=== PATIENT | male | born 1965 | race Hispanic/Latino ===

== ENCOUNTER 2017-06-03 12:52 | Inpatient (IN) | payer MEDICAID, OTHER ==
[2017-06-03 14:02] LABS: HEMOGLOBIN 14.8 g/dL (12.0-18.0); MEAN CELL VOLUME 88.6 fl (80.0-94.0); MEAN CORPUSCULAR HEMOGLOBIN 30.8 pg (27.0-31.0); MEAN CORPUSCULAR HGB CONC 34.8 g/dL (33.0-37.0); RBC 4.81 Mil/uL (4.40-5.90); RED CELL DISTRIBUTION WIDTH 12.8 % (11.5-14.5); WHITE BLOOD COUNT 14.2 K/uL (4.8-10.8)
--- NOTE | 2017-06-03 14:11 | RAD ---
HISTORY: SI COMPARISON: No prior. FINDINGS: LUNGS: No active pulmonary disease. PLEURA: No significant pleural effusion identified, no pneumothorax apparent. CARDIOVASCULAR: Normal. OSSEOUS STRUCTURES: No significant abnormalities. VISUALIZED UPPER ABDOMEN: Normal. OTHER FINDINGS: None. IMPRESSION: No active disease.
[2017-06-03 14:20] LABS: ACETAMINOPHEN < 10.0 ug/ml (10.0-30.0); ALB/GLOB RATIO 1.5 (1.0-2.1); ALBUMIN 4.3 g/dL (3.5-5.0); ALT/SGPT 25 U/L (21-72); AST/SGOT 21 U/L (17-59); BLOOD UREA NITROGEN 10 mg/dl (9-20); CALCIUM 9.9 mg/dL (8.4-10.2); GFR AFRICAN-AMERICAN > 60; GFR NON-AFRICAN AMERICAN > 60; SALICYLATE < 1.0 mg/dl
[2017-06-03 14:30] LABS: URINE BACTERIA RARE (<OCC); URINE BILIRUBIN NEGATIVE (NEGATIVE); URINE BLOOD NEGATIVE (NEGATIVE); URINE CLARITY CLEAR (Clear); URINE COLOR STRAW (YELLOW); URINE GLUCOSE (UA) NEG (Normal); URINE LEUKOCYTE ESTERASE NEG Leu/uL (Negative); URINE NITRATE NEGATIVE (NEGATIVE); URINE PROTEIN NEGATIVE (NEGATIVE); URINE UROBILINOGEN 0.2-1.0 mg/dL (0.2-1.0)
[2017-06-03 14:34] LABS: BARBITURATES, UR NEGATIVE (NEGATIVE); BENZODIAZEPINES, UR NEGATIVE (NEGATIVE); OPIATES, UR NEGATIVE (NEGATIVE); PHENCYCLIDINE, UR NEGATIVE (NEGATIVE)
[2017-06-03 15:01] VITALS: O2SAT 95
--- NOTE | 2017-06-03 16:54 | ED PDOC ---
HPI: Psych/Substance Abuse Time Seen by Provider: 06/03/17 13:04 Chief Complaint (Nursing): Psychiatric Evaluation Chief Complaint (Provider): SI History Per: Patient History/Exam Limitations: no limitations Onset/Duration Of Symptoms: Days Current Symptoms Are (Timing): Still Present Additional Complaint(s): 51 yo male with history of depression presents with SI. Pt states he has been shaking for a few months. Pt states that he was sent to neurologist for possible parkinsons but that he was unable to get to the appointment. Pt states due to the shaking he was unable to get tot he appointment. PT states that he wants to kill himself becuase he is losing the ability to take care of himself due to the shaking Past Medical History Reviewed: Historical Data, Nursing Documentation, Vital Signs Vital Signs: Last Vital Signs Temp 98 F 06/03/17 16:42 Pulse 104 H 06/03/17 16:42 Resp 19 06/03/17 16:42 BP 130/69 06/03/17 16:42 Pulse Ox 95 06/03/17 15:01 - Medical History PMH: Anxiety, Bipolar Disorder, Depression, HTN, Schizophrenia Denies: Diabetes, Hepatitis, HIV, Chronic Kidney Disease, Seizures, Sexually Transmitted Disease - Family History Family History: States: Unknown Family Hx - Immunization History Hx Tetanus Toxoid Vaccination: No Hx Influenza Vaccination: No Hx Pneumococcal Vaccination: No - Home Medications Home Medications: Ambulatory Orders Medication Instructions Recorded LORazepam [Ativan] 1 mg PO HS 10/26/15 Divalproex [Depakote DR] 500 mg PO Q12H 06/03/17 Mirtazapine [Remeron] 30 mg PO HS 06/03/17 QUEtiapine [Seroquel] 100 mg PO DAILY 06/03/17 Valbenazine Tosylate [Ingrezza] 06/03/17 - Allergies Allergies/Adverse Reactions: Allergies Allergy/AdvReac Type Severity Reaction Status Date / Time haloperidol [From Haldol] Allergy SWELLING Verified 06/03/17 12:55 haloperidol lactate Allergy SWELLING Verified 06/03/17 12:55 [From Haldol] Tetanus Vaccines and Toxoid Allergy SHORTNESS Verified 06/03/17 12:55 [Tetanus Vaccines & Toxoid] OF BREATH Review of Systems ROS Statement: Except As Marked, All Systems Reviewed And Found Negative Constitutional: Negative for: Fever, Chills Cardiovascular: Negative for: Chest Pain, Palpitations Respiratory: Negative for: Cough Gastrointestinal: Negative for: Nausea, Vomiting, Abdominal Pain Psych: Positive for: Suicidal ideation. Negative for: Depression Physical Exam - Reviewed Nursing Documentation Reviewed: Yes Vital Signs Reviewed: Yes - Physical Exam Appears: Positive for: Well, Non-toxic, No Acute Distress Head Exam: Positive for: ATRAUMATIC, NORMAL INSPECTION, NORMOCEPHALIC Skin: Positive for: Normal Color, Warm, DRY Eye Exam: Positive for: Normal appearance, EOMI, PERRL ENT: Positive for: Normal ENT Inspection Neck: Positive for: Normal, Painless ROM Cardiovascular/Chest: Positive for: Regular Rate, Rhythm Respiratory: Positive for: Normal Breath Sounds. Negative for: Accessory Muscle Use Gastrointestinal/Abdominal: Positive for: Normal Exam, Bowel Sounds, Soft Back: Positive for: Normal Inspection Extremity: Positive for: Normal ROM Neurologic/Psych: Positive for: Alert, Oriented, Other (tremor) - Laboratory Results Result Diagrams: 06/03/17 13:45 06/03/17 13:45 - ECG O2 Sat by Pulse Oximetry: 95 Pulse Ox Interpretation: Normal Medical Decision Making Medical Decision Making: Elevated wbc - Afebrile, normal CXR, normal urine. Head CT ordered. Disposition - Clinical Impression Clinical Impression: Depression - Patient ED Disposition Is Patient to be Admitted: Yes Counseled Patient/Family Regarding: Diagnosis, Need For Followup - Disposition Disposition: Routine/Home Disposition Time: 16:56 Condition: GOOD - Pt Status Changed To: Hospital Disposition Of: Inpatient - Admit Certification Admit to Inpatient:: After my assessment, the patient will require hospitalization for at least two midnights. This is because of the severity of symptoms shown, intensity of services needed, and/or the medical risk in this patient being treated as an outpatient. - POA Present On Arrival: None
--- NOTE | 2017-06-03 17:28 | CT ---
PROCEDURE: CT scan brain dated 06/03/2017. HISTORY: r/o bleed COMPARISON: No prior study available for comparison TECHNIQUE: Axial computed tomography images were obtained through the head/brain without intravenous contrast. Radiation dose: Total exam DLP = 870.72 mGy-cm. This CT exam was performed using one or more of the following dose reduction techniques: Automated exposure control, adjustment of the mA and/or kV according to patient size, and/or use of iterative reconstruction technique. FINDINGS: HEMORRHAGE: No acute parenchymal, subarachnoid or extra-axial hemorrhage. BRAIN: No evidence of large acute infarct. No obvious parenchymal nor extra-axial mass or collection seen on this noncontrast study. VENTRICLES: Unremarkable. No hydrocephalus. CALVARIUM: Unremarkable. PARANASAL SINUSES: Unremarkable as visualized. No significant inflammatory changes. MASTOID AIR CELLS: Unremarkable as visualized. No inflammatory changes. OTHER FINDINGS: None. IMPRESSION: No acute intracranial hemorrhage.
[2017-06-03 17:43] VITALS: BMI 26.1
[2017-06-03] MEDS ORDERED: Bismuth Subsalicylate 262 mg/15 ml Sus (240 ml) PO PRN (17:48)
[2017-06-03] MEDS ORDERED: Magnesium Hydroxide Susp 30 ml UD PO PRN (17:48)
[2017-06-03] MEDS ORDERED: Alum-Mag Hydrox-Simethicone Susp (30 mL) PO PRN (17:48)
[2017-06-03] MEDS ORDERED: Divalproex 500 mg DR(BID formulation) PO SCH (18:00)
--- NOTE | 2017-06-03 18:20 | PCM.BM ---
<Vika Garcia - Last Filed: 06/03/17 18:17> Treatment Plan Problems - Problems identified on initial assessmt Hopelessness/Helplessness Date Initiated: 06/03/17 Time Initiated: 18:18 Assessment reference: HP, NA Status: Active Treatment assets and liabiliti Patient Assests: adapts well, cooperative Patient Liabilities: live alone, medical problems - Milieu Protocol Maintain good personal hygiene: daily Encourage regular showers, daily Remind patient to perform daily oral care, daily Assist patient to perform ADL's Conduct patient checks and document Observation sheet: Q15 minutes Maintain personal safety: every shift Educate patient to report safety concerns to staff, every shift Monitor environment for contraband/sharps Medication safety: Monitor for expected outcome, potential side effects: every shift, Assess barriers to learning: every shift, Assess readiness for medication education: every shift <Ashlyn Bui - Last Filed: 06/04/17 09:20> - Diagnosis (1) Schizoaffective disorder Status: Acute Interventions: Medication management, Individual and group therapy, Psychoeducation 06/04/17 09:20 <Cindi Arboleda - Last Filed: 06/04/17 13:29> Family Contact Family contact: Patient agrees to contact, Telephone contact initiated by staff Family contact name: Jhonatan - significant other Family contacted how many times per week?: 2 Family contact comment: [phone] - Outside Agency [facility] Care involvment: Information-sharing Agency contact name: Dr. Salvatore MD Agency contact number: [phone] - Goals for Treatment Patient goals for treatment: Pt to be encouraged to attend activity and clinical groups 3-5x per week to identify at least 2 contributing factors to depression and suicide attempt. Psycho-education to be provided to patient/ family regarding benefits of medications and treatment adherence. Pt to be encouraged to participate in group milieu to develop effective coping skills to reduce depression and free of suicide ideation. Coordinate discharge resource needs by providing referral for psychiatric treatment follow up in the community. Discharge/Continuing Care - Education Needs Education Needs: Family Medication, Family Diagnosis/Disease Process, Family Coping Skills, Family Placement options, Family Community resources, Family Activities of Daily Living, Family Nutrition, Family Health Practices/Safety, Family Personal Hygiene/Grooming, Family Aftercare Safety Plan, Patient Medication, Patient Diagnosis/Disease Process, Patient Coping Skills, Patient Placement options, Patient Community resources, Patient Activities of Daily Living, Patient Nutrition, Patient Health Practices/Safety, Patient Personal Hygiene/Grooming, Patient Aftercare Safety Plan - Discharge Discharge Criteria: Tolerates medication w/o severe side effects, Free of Suicidal thoughts, Normal sleep pattern, Ability to care for self, Reduction of target symptoms Discharge to:: Home, With Family - Additional Comments 06/04/17 13:26 Pt seen and discussed in team meeting. Reason for hospitalization reviewed and discussed. Pt reported being referred tot he ED by Dr. Salvatore MD from [facility] due to suicide ideation. Pt reported having a plan to hang himself. Pt reported lately Dr. Salvatore MD has been changing his medications and he feels as if he is overmedicated. Pt presently denied SI and HI. Pt is agreeable to contract for safety on the unit. Pt's social and medical issues reviewed and discussed. Pt's medications reviewed with attending psychiatrist at length. Tx plan reviewed and pt is agreeable. Pt signed consent form for partner, Jhonatan for additional information ([phone]). Sw to continue to follow case. - Treatment Team Participation Discussed with Family/SO: No Was Patient/Family/SO present at Treatment Team Meeting: Yes
[2017-06-03] MEDS: Divalproex 500 mg DR(BID formulation) PO SCH (21:14)
[2017-06-04] MEDS ORDERED: Potassium Chloride 20 mEq ER Tab PO ONE (06:48)
[2017-06-04 07:17] LABS: HEMOGLOBIN 14.5 g/dL (12.0-18.0); MEAN CELL VOLUME 89.9 fl (80.0-94.0); MEAN CORPUSCULAR HEMOGLOBIN 30.9 pg (27.0-31.0); MEAN CORPUSCULAR HGB CONC 34.4 g/dL (33.0-37.0); RBC 4.7 Mil/uL (4.40-5.90); RED CELL DISTRIBUTION WIDTH 12.9 % (11.5-14.5); WHITE BLOOD COUNT 9.8 K/uL (4.8-10.8)
[2017-06-04 07:21] LABS: ALB/GLOB RATIO 1.4 (1.0-2.1); ALBUMIN 4.2 g/dL (3.5-5.0); ALT/SGPT 25 U/L (21-72); AST/SGOT 19 U/L (17-59); BLOOD UREA NITROGEN 8 mg/dl (9-20); CALCIUM 9.8 mg/dL (8.4-10.2); GFR AFRICAN-AMERICAN > 60; GFR NON-AFRICAN AMERICAN > 60; HDL CHOLESTEROL 52 MG/DL (30-70)
--- NOTE | 2017-06-04 07:37 | CP.PCM.CON ---
History of Present Illness - History of Present Illness History of Present Illness: Family Medicine 51 year old male PMHx bipolar disorder, depression, anxiety, hypertriglyceridemia seen and evaluated for worsening depression and suicidal ideation. Denies homicidal ideations. Patient states his depression worsened due to uncontrollable shaking of his hands with movement; states this began approximately 2 months ago and has worsened over time. Admits to compliance with psych medications. Complaining of insomnia currently. No other complaints. Denies nausea, vomiting, fever, chills, chest pain, palpitations, abd pain, diarrhea, constipation, dysuria. PMD: [facility] PMHx: bipolar disorder, depression, anxiety, hypertriglyceridemia PSH: none FH: none SH: 1PPD x40 years, denies ETOH/illicit drug use All: haldol (tongue swells), tetanus (arm smells) Review of Systems - Review of Systems All systems: reviewed and no additional remarkable complaints except (as per HPI ) Past Patient History - Infectious Disease Hx of Infectious Diseases: None - Past Social History Smoking Status: Current Some Days Smoker - CARDIAC Hx Cardiac Disorders: Yes Hx Hypertension: Yes - PULMONARY Hx Respiratory Disorders: No Hx Tuberculosis: No - NEUROLOGICAL Hx Neurological Disorder: No Hx Seizures: No - HEENT Hx HEENT Problems: No Other/Comment: uses reading glasses - RENAL Hx Chronic Kidney Disease: No - ENDOCRINE/METABOLIC Hx Endocrine Disorders: No - HEMATOLOGICAL/ONCOLOGICAL Hx Blood Disorders: No Hx Human Immunodeficiency Virus (HIV): No - INTEGUMENTARY Hx Dermatological Problems: No - MUSCULOSKELETAL/RHEUMATOLOGICAL Hx Musculoskeletal Disorders: No Hx Unsteady Gait: No - GASTROINTESTINAL Hx Gastrointestinal Disorders: No - GENITOURINARY/GYNECOLOGICAL Hx Genitourinary Disorders: No Hx Sexually Transmitted Disorders: No - PSYCHIATRIC Hx Emotional Abuse: No Hx Sexual Abuse: No Hx Substance Use: No - SURGICAL HISTORY Hx Surgeries: Yes Other/Comment: Face and lip surgery - ANESTHESIA Hx Anesthesia: Yes Hx Anesthesia Reactions: No Meds Allergies/Adverse Reactions: Allergies Allergy/AdvReac Type Severity Reaction Status Date / Time haloperidol [From Haldol] Allergy SWELLING Verified 06/03/17 12:55 haloperidol lactate Allergy SWELLING Verified 06/03/17 12:55 [From Haldol] Tetanus Vaccines and Toxoid Allergy SHORTNESS Verified 06/03/17 12:55 [Tetanus Vaccines & Toxoid] OF BREATH - Medications Medications: Current Medications Acetaminophen (Tylenol 325mg Tab) 650 mg PO Q4 PRN PRN Reason: Pain, moderate (4-7) Al Hydrox/Mg Hydrox/Simethicone (Maalox Plus 30 Ml) 30 ml PO Q4 PRN PRN Reason: Dyspepsia Bismuth Subsalicylate (Pepto-Bismol) 524 mg PO Q4 PRN PRN Reason: Diarrhea Divalproex Sodium (Depakote Dr(*Bid*)) 500 mg PO Q12 [facility] Last Admin: 06/03/17 21:14 Dose: 500 mg Lorazepam (Ativan) 0.5 mg PO HS PRN PRN Reason: Insomnia Stop: 06/17/17 17:49 Lorazepam (Ativan) 0.5 mg PO Q6 PRN PRN Reason: Anixety/Agitation Stop: 06/17/17 17:49 Lorazepam (Ativan) 1 mg PO HS [facility] Last Admin: 06/03/17 21:14 Dose: 1 mg Magnesium Hydroxide (Milk Of Magnesia) 30 ml PO HS PRN PRN Reason: Constipation Mirtazapine (Remeron) 30 mg PO HS [facility] Last Admin: 06/03/17 21:14 Dose: 30 mg Nicotine (Nicoderm Cq) 1 patch TD DAILY [facility] Quetiapine Fumarate (Seroquel) 100 mg PO DAILY [facility] Physical Exam - Constitutional Appears: Well, Non-toxic, No Acute Distress - Head Exam Head Exam: ATRAUMATIC, NORMAL INSPECTION, NORMOCEPHALIC - Eye Exam Eye Exam: EOMI, Normal appearance Pupil Exam: NORMAL ACCOMODATION, PERRL - ENT Exam ENT Exam: Mucous Membranes Moist, Normal Exam - Neck Exam Neck exam: Positive for: Full Rom, Normal Inspection. Negative for: Tenderness - Respiratory Exam Respiratory Exam: Clear to Auscultation Bilateral, NORMAL BREATHING PATTERN. absent: Rales, Rhonchi, Wheezes - Cardiovascular Exam Cardiovascular Exam: REGULAR RHYTHM, +S1, +S2 - GI/Abdominal Exam GI & Abdominal Exam: Normal Bowel Sounds, Soft. absent: Tenderness - Extremities Exam Extremities exam: Positive for: full ROM. Negative for: pedal edema - Neurological Exam Additional comments: Intention tremor bilateral UE - Psychiatric Exam Psychiatric exam: Anxious, Depressed - Skin Skin Exam: Dry, Intact, Normal Color, Warm Results - Vital Signs Recent Vital Signs: Last Vital Signs Temp 98.1 F 06/04/17 05:56 Pulse 92 H 06/04/17 05:56 Resp 19 06/04/17 05:56 BP 136/74 06/04/17 05:56 Pulse Ox 95 06/03/17 16:57 - Labs Result Diagrams: 06/04/17 06:34 06/04/17 06:34 Labs: Laboratory Results - last 24 hr 06/03/17 06/03/17 06/03/17 13:45 13:45 13:45 WBC 14.2 H D RBC 4.81 Hgb 14.8 Hct 42.6 MCV 88.6 D MCH 30.8 MCHC 34.8 RDW 12.8 Plt Count 478 H D Sodium 140 Potassium 3.5 L Chloride 101 Carbon Dioxide 26 Anion Gap 17 BUN 10 Creatinine 0.9 Est GFR ( Amer) > 60 Est GFR (Non-Af Amer) > 60 Random Glucose 103 Calcium 9.9 Total Bilirubin 0.3 AST 21 ALT 25 Alkaline Phosphatase 65 Total Protein 7.2 Albumin 4.3 Globulin 2.9 Albumin/Globulin Ratio 1.5 Triglycerides Cholesterol HDL Cholesterol Free T4 Urine Color Urine Clarity Urine pH Ur Specific [place] Urine Protein Urine Glucose (UA) Urine Ketones Urine Blood Urine Nitrate Urine Bilirubin Urine Urobilinogen Ur Leukocyte Esterase Urine RBC (Auto) Urine Microscopic WBC Urine Bacteria Salicylates < 1.0 Urine Opiates Screen Urine Methadone Screen Acetaminophen < 10.0 L Ur Barbiturates Screen Valproic Acid Ur Phencyclidine Scrn Ur Amphetamines Screen U Benzodiazepines Scrn U Oth Cocaine Metabols U Cannabinoids Screen Alcohol, Quantitative < 10 06/03/17 06/03/17 06/04/17 13:55 13:55 06:34 WBC 9.8 RBC 4.70 Hgb 14.5 Hct 42.2 MCV 89.9 MCH 30.9 MCHC 34.4 RDW 12.9 Plt Count 467 H Sodium Potassium Chloride Carbon Dioxide Anion Gap BUN Creatinine Est GFR ( Amer) Est GFR (Non-Af Amer) Random Glucose Calcium Total Bilirubin AST ALT Alkaline Phosphatase Total Protein Albumin Globulin Albumin/Globulin Ratio Triglycerides Cholesterol HDL Cholesterol Free T4 Urine Color Straw Urine Clarity Clear Urine pH 7.0 Ur Specific [place] < 1.005 Urine Protein Negative Urine Glucose (UA) Neg Urine Ketones Negative Urine Blood Negative Urine Nitrate Negative Urine Bilirubin Negative Urine Urobilinogen 0.2-1.0 Ur Leukocyte Esterase Neg Urine RBC (Auto) < 1 Urine Microscopic WBC < 1 Urine Bacteria Rare Salicylates Urine Opiates Screen Negative Urine Methadone Screen Negative Acetaminophen Ur Barbiturates Screen Negative Valproic Acid Ur Phencyclidine Scrn Negative Ur Amphetamines Screen Negative U Benzodiazepines Scrn Negative U Oth Cocaine Metabols Negative U Cannabinoids Screen Negative Alcohol, Quantitative 06/04/17 06/04/17 06/04/17 06:34 06:34 06:34 WBC RBC Hgb Hct MCV MCH MCHC RDW Plt Count Sodium 137 Potassium 4.0 Chloride 99 Carbon Dioxide 28 Anion Gap 14 BUN 8 L Creatinine 0.8 Est GFR ( Amer) > 60 Est GFR (Non-Af Amer) > 60 Random Glucose 105 Calcium 9.8 Total Bilirubin 0.4 AST 19 ALT 25 Alkaline Phosphatase 68 Total Protein 7.1 Albumin 4.2 Globulin 2.9 Albumin/Globulin Ratio 1.4 Triglycerides 176 H D Cholesterol 189 HDL Cholesterol 52 Free T4 1.66 Urine Color Urine Clarity Urine pH Ur Specific [place] Urine Protein Urine Glucose (UA) Urine Ketones Urine Blood Urine Nitrate Urine Bilirubin Urine Urobilinogen Ur Leukocyte Esterase Urine RBC (Auto) Urine Microscopic WBC Urine Bacteria Salicylates Urine Opiates Screen Urine Methadone Screen Acetaminophen Ur Barbiturates Screen Valproic Acid 28.6 L Ur Phencyclidine Scrn Ur Amphetamines Screen U Benzodiazepines Scrn U Oth Cocaine Metabols U Cannabinoids Screen Alcohol, Quantitative Assessment & Plan (1) Tremor of both hands Status: Acute (2) Bipolar disorder Status: Acute (3) Anxiety Status: Acute (4) Depression Status: Acute (5) Insomnia Status: Acute (6) Hypertriglyceridemia Status: Acute (7) Hypokalemia Status: Acute - Assessment and Plan (Free Text) Assessment: 51 year old male PMHx bipolar disorder, depression, anxiety, hx of tuberculosis , hypertriglyceridemia admitted for worsening depression and suicidal ideation. (1) Tremor of both hands -2/2 medication vs. benign etiology; no metabolic derangement or PMHx -Will continue to monitor (2) Bipolar disorder -Management per psychiatry (3) Anxiety -Management per psychiatry (4) Depression -Management per psychiatry (5) Insomnia -Management per psychiatry (6) Hypertriglyceridemia -Stable -Mildly elevated @ 176 -Total cholesterol, HDL, LDL all WNL -Will monitor (7) Hypokalemia -K 3.5 yesterday -KCl 40meq PO -Replete with KCl prn
[2017-06-04 07:41] LABS: T4 13.7 ug/dl (5.5-11.0)
[2017-06-04] MEDS: Divalproex 500 mg DR(BID formulation) PO SCH (09:00)
[2017-06-04 09:14] LABS: LDL CHOLESTEROL 91 mg/dL (0-129)
--- NOTE | 2017-06-04 09:20 | PCM.PSYCH ---
Initial Psychiatric Evaluation - Initial Psychiatric Evaluation Type of Admission: Voluntary Legal Status: Capacity Chief Complaint (in patient's own words): "I was having suicidal thoughts." Patient's Reaction to Hospitalization: HPI: 51 yo male w/ h/o schizoaffective disorder, HLD, presents with worsening depression and suicidal ideation to hang himself. Patient reports that he feels upset because he feels like his hands shake uncontrollable and they have limited his ability to do things, such as care for himself and shave. Patient reports that he has been compliant with medications and that his primary psychiatrist has been modifying them because he feels "over medicated." He reports intermittent feels of depression. +Sleep/appetite disturbances. + Constricted affect. +Anhedonia. He denies current active suicidal ideation or intent and was able to contract for safety on the unit. Denies AH/VH/paranoia/ delusions. PPHx: History of psychiatric admission at [facility]. Current treatment w / Dr. Chase. Patient is currently being tapered off of Invega and increased on Seroquel (now at 200 mg PO HS). He was also prescribed Depakote 500 mg PO PO BID, Ativan 1 mg PO HS and Remeron 30 mg PO HS. PMHx: HLD SHx: Smokes 1ppd, denies drugs/etoh use. Lives w/ romantic partner. Unemployed. h/o Alcohol Use Disorder in remission. Current Medications: Active Medications Generic Name Dose Route Start Last Admin Trade Name Freq PRN Reason Stop Dose Admin Acetaminophen 650 mg 06/03/17 17:48 Tylenol 325mg Tab PO Q4 PRN Pain, moderate (4-7) Al Hydrox/Mg Hydrox/Simethicone 30 ml 06/03/17 17:48 Maalox Plus 30 Ml PO Q4 PRN Dyspepsia Bismuth Subsalicylate 524 mg 06/03/17 17:48 Pepto-Bismol PO Q4 PRN Diarrhea Divalproex Sodium 500 mg 06/03/17 21:00 06/04/17 09:00 Conchita Rollins(*Bid*) PO 500 mg Q12 TOY Administration Lorazepam 0.5 mg 06/03/17 17:48 Ativan PO 06/17/17 17:49 HS PRN Insomnia Lorazepam 0.5 mg 06/03/17 17:48 Ativan PO 06/17/17 17:49 Q6 PRN Anixety/Agitation Lorazepam 1 mg 06/03/17 22:00 06/03/17 21:14 Ativan PO 1 mg HS TOY Administration Magnesium Hydroxide 30 ml 06/03/17 17:48 Milk Of Magnesia PO HS PRN Constipation Mirtazapine 30 mg 06/03/17 22:00 06/03/17 21:14 Remeron PO 30 mg HS TOY Administration Nicotine 1 patch 06/04/17 09:00 06/04/17 08:59 Nicoderm Cq TD 1 patch DAILY TOY Administration Quetiapine Fumarate 100 mg 06/04/17 22:00 Seroquel PO HS TOY Past Psychiatric History - Past Psychiatric History Previous Treatment History: Inpatient Pertinent Medical Hx (Current Medical&Sleep Prob, Allergies): Allergies Allergy/AdvReac Type Severity Reaction Status Date / Time haloperidol [From Haldol] Allergy SWELLING Verified 06/03/17 12:55 haloperidol lactate Allergy SWELLING Verified 06/03/17 12:55 [From Haldol] Tetanus Vaccines and Toxoid Allergy SHORTNESS Verified 06/03/17 12:55 [Tetanus Vaccines & Toxoid] OF BREATH LORazepam [Ativan] 1 mg PO HS 10/26/15 Divalproex [Depakote DR] 500 mg PO Q12H 06/03/17 Mirtazapine [Remeron] 30 mg PO HS 06/03/17 QUEtiapine [Seroquel] 100 mg PO DAILY 06/03/17 Valbenazine Tosylate [Ingrezza] 06/03/17 Review of Systems - Psychiatric Psychiatric: As Per HPI, Abnormal Sleep Pattern, Anhedonia, Anxiety, Behavioral Changes, Change in Appetite, Difficulty Concentrating, Hopelessness, Irritability, Mood Swings, Suicidal Ideation Mental Status Examination - Personal Presentation Personal Presentation: Looks stated age - Affect Affect: Constricted, Depressed - Motor Activity Motor Activity: Calm - Reliability in Providing Information Reliability in Providing Information: Fair - Speech Speech: Coherent - Mood Mood: Depressed - Formal Thought Process Formal Thought Process: No Impairment - Hallucinations/Delusions Additional comments: No AH/VH/paranoia/delusions - Obsessions/Compulsions Obsessions: No Compulsions: No - Cognitive Functions Orientation: Person, Place, Situation, Time Sensorium: Alert Attention/Concentration: Attentive Judgement: Intact, as evidence by: Insight regarding need for hospitalization Memory: Recent intact, as evidence by: Ability to recall events of the day, Remote intact, as evidenced by: Abilit to recall sig. life events, Remote intact , as evidenced by: Ability to recall historical events - Risk Risk: Suicidal, Diminished functioning - Strength & Assets Inventory Strength & Assets Inventory: Cooperative DSM 5 DX - DSM 5 DSM 5 Diagnosis: Schizoaffective Disorder - Recommended/Plan of Treatment Treatment Recommendations and Plan of Treatment: Schizoaffective Disorder -Admit patient to psychiatry -Increase Depakote to 750 mg PO BID gradually; VPA 28.6 on 06/04/16 -Taper Remeron to 15 mg PO HS -Change Ativan to Klonopin 0.5 mg PO HS -Continue Seroquel 200 mg PO HS; will not restart Invega Sustenna (last given 05/13/17) -Hold Ingrezza -Nicotine patch -Neurology consult -Medicine consult -Individual and group therapy -Case discussed w/ primary psychiatrist -Rapid HIV test -Obtain collateral history -No 1:1 indicated at this time -Disposition planning Projected ELOS: 6-10 days Discharge Plan and Discharge Criteria: Discharge patient when he is psychiatrically stable - Smoking Cessation Smoking Cessation Initiated: Yes
[2017-06-04] MEDS: Divalproex 250 mg DR(BID formulation) PO SCH (17:09)
--- NOTE | 2017-06-04 18:19 | CARD ---
APPROVED REPORT EKG Measurement Heart [id number] <Conclusion> Sinus tachycardia Rightward axis Nonspecific ST abnormality Abnormal ECG
[2017-06-04 21:58] LABS: FOLATE 5.7 ng/mL
[2017-06-05] MEDS: Divalproex 250 mg DR(BID formulation) PO SCH ×2 (08:39→17:20)
--- NOTE | 2017-06-05 10:44 | PCM.PYCHPN ---
Psychiatric Progress Note - Psychiatric Progress Note Patient seen today, length of contact: Patient evaluated, case discussed with team, chart reviewed Patient Chief Complaint: "I'm okay." Problems Identified/Issues Discussed: Patient continues to feel depressed but denies acute suicidal ideation/plan/ intent. He continues to have constricted affect. He denies acute AH/VH. He denies adverse effects to medication. Diagnostic Results: HIV/ Hep C/ RPR Negative Medication Change: Yes (Increase Depakote to 750 mg PO BID) Medical Record Reviewed: Yes Consults ordered or reviewed: Medicine consult Mental Status Examination - Cognitive Function Orientation: Person, Place, Situation, Time Memory: Intact Attention: WNL Concentration: WNL Association: WNL Fund of Knowledge: [facility] Decription of patient's judgement and insights: Fair I/J - Mood Mood: Depressed - Affect Affect: Constricted, Depressed - Speech Speech: Appropriate - Formal Thought Process Formal Thought Process: No Impairment Psychotic Thoughts and Behaviors: No AH/VH/paranoia - Suicidal Ideation Suicidal Ideation: No - Homicidal Ideation Homicidal Ideation: No Goal/Treatment Plan - Goal/Treatment Plan Need for Continued Stay: Remain at risks for inpatient hospitalization, Severe depression anxiety, Discharge may exacerbated symptoms Progress Toward Problem(s) and Goals/Treatment Plan: Schizoaffective Disorder -Increase Depakote to 750 mg PO BID; VPA 28.6 on 06/04/16 -Continue Remeron 15 mg PO HS -Continue Klonopin 0.5 mg PO HS -Continue Seroquel 200 mg PO HS; will not restart Invega Sustenna (last given 05/13/17) -Hold Ingrezza -Nicotine patch -Neurology consult -Medicine consult -Individual and group therapy -Case discussed w/ primary psychiatrist -Obtain collateral history -No 1:1 indicated at this time -Disposition planning
--- NOTE | 2017-06-06 08:23 | PCM.PYCHPN ---
Psychiatric Progress Note - Psychiatric Progress Note Patient seen today, length of contact: Patient evaluated, case discussed with team, chart reviewed Patient Chief Complaint: "I'm okay." Problems Identified/Issues Discussed: Patient continues to feel depressed, but states that his mood is starting to improve. He denies acute suicidal ideation/plan/intent. He continues to have constricted affect. He denies acute AH/VH. He denies adverse effects to medication. Diagnostic Results: HIV/ Hep C/ RPR Negative Medication Change: No Medical Record Reviewed: Yes Consults ordered or reviewed: Medicine consult Mental Status Examination - Cognitive Function Orientation: Person, Place, Situation, Time Memory: Intact Attention: WNL Concentration: WNL Association: WNL Fund of Knowledge: [facility] Decription of patient's judgement and insights: Fair I/J - Mood Mood: Depressed - Affect Affect: Constricted, Depressed - Speech Speech: Appropriate - Formal Thought Process Formal Thought Process: No Impairment Psychotic Thoughts and Behaviors: No AH/VH/paranoia - Suicidal Ideation Suicidal Ideation: No - Homicidal Ideation Homicidal Ideation: No Goal/Treatment Plan - Goal/Treatment Plan Need for Continued Stay: Remain at risks for inpatient hospitalization, Severe depression anxiety, Discharge may exacerbated symptoms Progress Toward Problem(s) and Goals/Treatment Plan: Schizoaffective Disorder -Continue Depakote 750 mg PO BID; VPA 28.6 on 06/04/16 -Continue Remeron 15 mg PO HS -Continue Klonopin 0.5 mg PO HS -Continue Seroquel 200 mg PO HS; will not restart Invega Sustenna (last given 05/13/17) -Hold Ingrezza -Nicotine patch -Neurology consult -Medicine consult -Individual and group therapy -Case discussed w/ primary psychiatrist -Obtain collateral history -No 1:1 indicated at this time -Disposition planning Estimated Date of D/C: 06/09/17
[2017-06-06] MEDS: Divalproex 250 mg DR(BID formulation) PO SCH ×2 (08:33→17:28)
[2017-06-06] MEDS ORDERED: Influenza Vaccine 18yr & older 0.5 ML/45 MCG SYR IM ONE (19:48)
[2017-06-07] MEDS: Divalproex 250 mg DR(BID formulation) PO SCH ×2 (08:37→16:44)
--- NOTE | 2017-06-07 08:45 | CP.PCM.PN ---
Subjective - Date & Time of Evaluation Date of Evaluation: 06/07/17 Time of Evaluation: 08:42 - Subjective Subjective: Family Medicine 51 year old male seen and evaluated this AM. No issues overnight, still admits to insomnia only sleeping 1-3 hours a night. States his mood is improving slightly. Endorses the shaking in his hands has improved since admission. No other complaints. Denies nausea, vomiting, fever, chills, chest pain, palpitations, abd pain, diarrhea, constipation, dysuria. Objective - Vital Signs/Intake and Output Vital Signs (last 24 hours): Temp Pulse Resp BP Pulse Ox 98.1 F 91 H 20 138/68 95 06/06/17 16:06 06/06/17 16:06 06/06/17 16:06 06/06/17 16:06 06/03/17 16:57 - Medications Medications: Current Medications Acetaminophen (Tylenol 325mg Tab) 650 mg PO Q4 PRN PRN Reason: Pain, moderate (4-7) Al Hydrox/Mg Hydrox/Simethicone (Maalox Plus 30 Ml) 30 ml PO Q4 PRN PRN Reason: Dyspepsia Bismuth Subsalicylate (Pepto-Bismol) 524 mg PO Q4 PRN PRN Reason: Diarrhea Carbidopa/Levodopa (Sinemet) 1 tab PO BID@0800,1200 [facility] Last Admin: 06/07/17 08:37 Dose: 1 tab Clonazepam (Klonopin) 0.5 mg PO HS [facility] Last Admin: 06/06/17 21:06 Dose: 0.5 mg Divalproex Sodium (Depakote Dr(*Bid*)) 750 mg PO BID [facility] Last Admin: 06/07/17 08:37 Dose: 750 mg Lorazepam (Ativan) 0.5 mg PO HS PRN PRN Reason: Insomnia Stop: 06/17/17 17:49 Last Admin: 06/05/17 12:39 Dose: 0.5 mg Lorazepam (Ativan) 0.5 mg PO Q6 PRN PRN Reason: Anixety/Agitation Stop: 06/17/17 17:49 Last Admin: 06/07/17 08:41 Dose: 0.5 mg Magnesium Hydroxide (Milk Of Magnesia) 30 ml PO HS PRN PRN Reason: Constipation Mirtazapine (Remeron) 15 mg PO [facility] Last Admin: 06/06/17 21:06 Dose: 15 mg Nicotine (Nicoderm Cq) 1 patch TD DAILY [facility] Last Admin: 06/07/17 08:38 Dose: 1 patch Quetiapine Fumarate (Seroquel) 200 mg PO HS [facility] Last Admin: 06/06/17 21:06 Dose: 200 mg - Labs Labs: 06/04/17 06:34 06/04/17 06:34 - Constitutional Appears: Non-toxic, No Acute Distress - Head Exam Head Exam: ATRAUMATIC, NORMAL INSPECTION, NORMOCEPHALIC - Eye Exam Eye Exam: EOMI, Normal appearance Pupil Exam: NORMAL ACCOMODATION, PERRL - ENT Exam ENT Exam: Mucous Membranes Moist, Normal Exam - Neck Exam Neck Exam: Full ROM, Normal Inspection. absent: Tenderness - Respiratory Exam Respiratory Exam: Clear to Ausculation Bilateral, NORMAL BREATHING PATTERN. absent: Rales, Rhonchi, Wheezes - Cardiovascular Exam Cardiovascular Exam: REGULAR RHYTHM, +S1, +S2 - GI/Abdominal Exam GI & Abdominal Exam: Soft, Normal Bowel Sounds. absent: Tenderness - Extremities Exam Extremities Exam: Full ROM, Normal Inspection. absent: Tenderness - Back Exam Back Exam: NORMAL INSPECTION - Neurological Exam Neurological Exam: Alert, Awake Neuro motor strength exam: Left Upper Extremity: 5, Right Upper Extremity: 5 Additional comments: Intention tremor bilateral UE, improving - Psychiatric Exam Psychiatric exam: Depressed, Flat Affect - Skin Skin Exam: Dry, Intact, Normal Color, Warm Assessment and Plan (1) Tremor of both hands Status: Acute (2) Bipolar disorder Status: Acute (3) Anxiety Status: Acute (4) Depression Status: Acute (5) Insomnia Status: Acute (6) Hypertriglyceridemia Status: Acute (7) Hypokalemia Status: Acute - Assessment and Plan (Free Text) Assessment: 51 year old male PMHx bipolar disorder, depression, anxiety, hx of tuberculosis , hypertriglyceridemia admitted for worsening depression and suicidal ideation. (1) Tremor of both hands -2/2 medication vs. benign etiology; no metabolic derangement or PMHx -Improvement after psychiatric medication adjustment -f/u Neurology consult (2) Bipolar disorder -Management per psychiatry (3) Anxiety -Management per psychiatry (4) Depression -Management per psychiatry (5) Insomnia -Management per psychiatry (6) Hypertriglyceridemia -Stable -Mildly elevated @ 176 -Total cholesterol, HDL, LDL all WNL -Continue to monitor (7) Hypokalemia -Resolved
--- NOTE | 2017-06-07 09:45 | PCM.PYCHPN ---
Psychiatric Progress Note - Psychiatric Progress Note Patient seen today, length of contact: Patient evaluated, case discussed with team, chart reviewed Patient Chief Complaint: "I'm okay." Problems Identified/Issues Discussed: Patient reports that his mood is starting to improve. He denies acute suicidal ideation/plan/intent. He continues to have constricted affect. He denies acute AH/VH. He denies adverse effects to medication. He continues to have significant difficulty sleeping at night. We discussed medication modifications. r/b/se reviewed. Diagnostic Results: HIV/ Hep C/ RPR Negative Medication Change: Yes (Stop Remeron and Klonopin; Start Restoril 15 mg PO HS) Medical Record Reviewed: Yes Consults ordered or reviewed: Medicine consult Mental Status Examination - Cognitive Function Orientation: Person, Place, Situation, Time Memory: Intact Attention: WNL Concentration: WNL Association: WNL Fund of Knowledge: [facility] Decription of patient's judgement and insights: Fair I/J - Mood Mood: Depressed - Affect Affect: Constricted, Depressed - Speech Speech: Appropriate - Formal Thought Process Formal Thought Process: No Impairment Psychotic Thoughts and Behaviors: No AH/VH/paranoia - Suicidal Ideation Suicidal Ideation: No - Homicidal Ideation Homicidal Ideation: No Goal/Treatment Plan - Goal/Treatment Plan Need for Continued Stay: Remain at risks for inpatient hospitalization, Severe depression anxiety, Discharge may exacerbated symptoms Progress Toward Problem(s) and Goals/Treatment Plan: Schizoaffective Disorder; patient needs continued hospitalization for treatment and stabilization. -Continue Depakote 750 mg PO BID; VPA 28.6 on 06/04/16; check repeat VPA -Stop Remeron 15 mg PO HS -Stop Klonopin 0.5 mg PO HS -Continue Seroquel 200 mg PO HS; will not restart Invega Sustenna (last given 05/13/17) -Start Restoril 15 mg PO HS -Stop Ingrezza -Nicotine patch -Neurology consult -Medicine consult -Individual and group therapy -Case discussed w/ primary psychiatrist -No 1:1 indicated at this time -Disposition planning Estimated Date of D/C: 06/10/17
[2017-06-08] MEDS: Divalproex 250 mg DR(BID formulation) PO SCH ×2 (08:42→16:31)
--- NOTE | 2017-06-08 09:18 | PCM.PYCHPN ---
Psychiatric Progress Note - Psychiatric Progress Note Patient seen today, length of contact: Patient evaluated, case discussed with team, chart reviewed Patient Chief Complaint: "I'm okay." Problems Identified/Issues Discussed: Patient reports that his mood is starting to improve, but he continues to have constricted affect and has subjective complaints of poor sleep quality. He denies acute suicidal ideation/plan/intent. He denies acute AH/VH. He denies adverse effects to medications. Diagnostic Results: HIV/ Hep C/ RPR Negative DSM 5 Symptoms Update: VPA 82.5 Medication Change: No Medical Record Reviewed: Yes Consults ordered or reviewed: Medicine consult Mental Status Examination - Cognitive Function Orientation: Person, Place, Situation, Time Memory: Intact Attention: WNL Concentration: WNL Association: WNL Fund of Knowledge: [facility] Decription of patient's judgement and insights: Fair I/J - Mood Mood: Depressed - Affect Affect: Constricted, Depressed - Speech Speech: Appropriate - Formal Thought Process Formal Thought Process: No Impairment Psychotic Thoughts and Behaviors: No AH/VH/paranoia - Suicidal Ideation Suicidal Ideation: No - Homicidal Ideation Homicidal Ideation: No Goal/Treatment Plan - Goal/Treatment Plan Need for Continued Stay: Remain at risks for inpatient hospitalization, Severe depression anxiety, Discharge may exacerbated symptoms Progress Toward Problem(s) and Goals/Treatment Plan: Schizoaffective Disorder; patient needs continued hospitalization for treatment and stabilization. -Continue Depakote 750 mg PO BID; VPA 28.6 on 06/04/16; check repeat VPA -Continue Seroquel 200 mg PO HS; will not restart Invega Sustenna (last given 05/13/17) -Continue Restoril 15 mg PO HS -Nicotine patch -Neurology consult -Medicine consult -Individual and group therapy -Case discussed w/ primary psychiatrist -Disposition planning- possible discharge on if patient improves clinically Estimated Date of D/C: 06/10/17 - Smoking Cessation Smoking Cessation Initiated: Yes
[2017-06-09 06:09] VITALS: RESP 19
[2017-06-09] MEDS ORDERED: Pneumococcal 23-Valent Vaccine IM ONE (07:00)
--- NOTE | 2017-06-09 08:40 | PCM.PYCHPN ---
Psychiatric Progress Note - Psychiatric Progress Note Patient seen today, length of contact: Patient evaluated, case discussed with team, chart reviewed Patient Chief Complaint: "I'm okay." Problems Identified/Issues Discussed: Patient reports that his mood continues to improve and he has a broader range of affect. He denies AH/VH/SI/HI. He continues to report poor sleep, but has been observed sleeping by staff. He continues to have intermittent feelings of anxiety. Psychoeducation provided re: medications and the importance of outpatient follow-up. He denies adverse effects to medications. Diagnostic Results: HIV/ Hep C/ RPR Negative Medication Change: No Medical Record Reviewed: Yes Consults ordered or reviewed: Medicine consult, Neurology consult Mental Status Examination - Cognitive Function Orientation: Person, Place, Situation, Time Memory: Intact Attention: WNL Concentration: WNL Association: WNL Fund of Knowledge: [facility] Decription of patient's judgement and insights: Fair I/J - Mood Mood: Depressed, Anxious - Affect Affect: Constricted - Speech Speech: Appropriate - Formal Thought Process Formal Thought Process: No Impairment Psychotic Thoughts and Behaviors: No AH/VH/paranoia - Suicidal Ideation Suicidal Ideation: No - Homicidal Ideation Homicidal Ideation: No Goal/Treatment Plan - Goal/Treatment Plan Need for Continued Stay: Severe depression anxiety, Discharge may exacerbated symptoms Progress Toward Problem(s) and Goals/Treatment Plan: Schizoaffective Disorder; patient needs continued hospitalization for treatment and stabilization. -Continue Depakote 750 mg PO BID; VPA 28.6 on 06/04/16; check repeat VPA -Continue Seroquel 200 mg PO HS; will not restart Invega Sustenna (last given 05/13/17) -Continue Restoril 15 mg PO HS -Nicotine patch -Neurology consult -Medicine consult -Individual and group therapy -Case discussed w/ primary psychiatrist -Disposition planning- discharge to home tomorrow w/ outpatient follow-up Estimated Date of D/C: 06/10/17 - Smoking Cessation Smoking Cessation Initiated: Yes
[2017-06-09] MEDS: Divalproex 250 mg DR(BID formulation) PO SCH ×2 (08:50→17:05)
--- NOTE | 2017-06-09 19:32 | CP.PCM.CON ---
History of Present Illness - History of Present Illness History of Present Illness: 51 yr old male with PMHx of bipolar disorder, depression, anxiety, hypertriglyceridemia who was admitted to [facility] for depression and suicidal ideation. states that he became more depressed after his hands started to shake after 2 montha ago. Complaining of insomnia currently. No other complaints. Denies nausea, vomiting, fever, chills, chest pain, palpitations, abd pain, diarrhea, constipation, dysuria. There is no history of falls, no headache, no postural instability of which he complains. PMH/PSH FH/SH all: Meds: On exam: AAOX3. pupils 3mm-2mm with light. EOMI. CN 2-12 norml. No square wave jerks. Motor: cogwheel rigidity bilaterally, strength normal 5/5. Tremor bilaterally, not asterixis, Tremor is fine , and at rest although there is an intentional component. Postural instability, mild. Sensory: intact, ft, pin, position, and vibration sense. Gait: Short steps, turn is 2 point but slow. Past Patient History - Infectious Disease Hx of Infectious Diseases: None - Past Social History Smoking Status: Current Some Days Smoker - CARDIAC Hx Cardiac Disorders: Yes Hx Hypertension: Yes - PULMONARY Hx Respiratory Disorders: No Hx Tuberculosis: No - NEUROLOGICAL Hx Neurological Disorder: No Hx Seizures: No - HEENT Hx HEENT Problems: No Other/Comment: uses reading glasses - RENAL Hx Chronic Kidney Disease: No - ENDOCRINE/METABOLIC Hx Endocrine Disorders: No - HEMATOLOGICAL/ONCOLOGICAL Hx Blood Disorders: No Hx Human Immunodeficiency Virus (HIV): No - INTEGUMENTARY Hx Dermatological Problems: No - MUSCULOSKELETAL/RHEUMATOLOGICAL Hx Musculoskeletal Disorders: No Hx Unsteady Gait: No - GASTROINTESTINAL Hx Gastrointestinal Disorders: No - GENITOURINARY/GYNECOLOGICAL Hx Genitourinary Disorders: No Hx Sexually Transmitted Disorders: No - PSYCHIATRIC Hx Emotional Abuse: No Hx Sexual Abuse: No Hx Substance Use: No - SURGICAL HISTORY Hx Surgeries: Yes Other/Comment: Face and lip surgery - ANESTHESIA Hx Anesthesia: Yes Hx Anesthesia Reactions: No Meds Home Medications: Home Medication List Medication Instructions Recorded Confirmed Type Divalproex [Depakote DR(*BID*)] 750 mg PO BID #180 tcp 06/09/17 Rx QUEtiapine [SEROquel] 200 mg PO HS #30 tab 06/09/17 Rx Temazepam [Restoril] 15 mg PO HS #30 cap 06/09/17 Rx Allergies/Adverse Reactions: Allergies Allergy/AdvReac Type Severity Reaction Status Date / Time haloperidol [From Haldol] Allergy SWELLING Verified 06/03/17 12:55 haloperidol lactate Allergy SWELLING Verified 06/03/17 12:55 [From Haldol] Tetanus Vaccines and Toxoid Allergy SHORTNESS Verified 06/03/17 12:55 [Tetanus Vaccines & Toxoid] OF BREATH - Medications Medications: Current Medications Acetaminophen (Tylenol 325mg Tab) 650 mg PO Q4 PRN PRN Reason: Pain, moderate (4-7) Al Hydrox/Mg Hydrox/Simethicone (Maalox Plus 30 Ml) 30 ml PO Q4 PRN PRN Reason: Dyspepsia Bismuth Subsalicylate (Pepto-Bismol) 524 mg PO Q4 PRN PRN Reason: Diarrhea Carbidopa/Levodopa (Sinemet) 1 tab PO BID@0800,1200 [facility] Last Admin: 06/09/17 12:47 Dose: 1 tab Divalproex Sodium (Depakote Dr(*Bid*)) 750 mg PO BID [facility] Last Admin: 06/09/17 17:05 Dose: 750 mg Lorazepam (Ativan) 0.5 mg PO Q6 PRN PRN Reason: Anixety/Agitation Stop: 06/17/17 17:49 Last Admin: 06/09/17 08:44 Dose: 0.5 mg Magnesium Hydroxide (Milk Of Magnesia) 30 ml PO HS PRN PRN Reason: Constipation Nicotine (Nicoderm Cq) 1 patch TD DAILY [facility] Last Admin: 06/09/17 08:45 Dose: 1 patch Quetiapine Fumarate (Seroquel) 200 mg PO HS [facility] Last Admin: 06/08/17 21:07 Dose: 200 mg Temazepam (Restoril) 15 mg PO [facility] Last Admin: 06/08/17 21:07 Dose: 15 mg Results - Vital Signs Recent Vital Signs: Last Vital Signs Temp 97.3 F L 06/09/17 15:31 Pulse 81 06/09/17 15:31 Resp 19 06/09/17 15:31 BP 130/72 06/09/17 15:31 Pulse Ox 95 06/03/17 16:57 - Labs Result Diagrams: 06/04/17 06:34 06/04/17 06:34 Assessment & Plan - Assessment and Plan (Free Text) Assessment: 51 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 However, at this time, in light of his suicidal ideation and depression, a medication change would not be advisable. Therefore we can attempt trial of sinemet. Plan: 1. Start sinemet 25/100 mg bid, 7 am, 12 noon. 2. Will follow. 3. At this point, MRI brain is not recommended. Thank you for this interesting consultation.
[2017-06-10 05:55] VITALS: BP 108/69; PULSE 89; TEMP 97.6
[2017-06-10] MEDS: Divalproex 250 mg DR(BID formulation) PO SCH (09:24)
--- NOTE | 2017-06-10 09:44 | CP.PCM.PN ---
Subjective - Date & Time of Evaluation Date of Evaluation: 06/10/17 Time of Evaluation: 09:42 - Subjective Subjective: Mr. Mast was seen and examined at the bedside. He is alert, oriented with less shaking in comparison from previous examination. He further states of being discharge today and he feels that he can take care of himself better form now on. He is able to follow simple commands with mild tremors seen in his bilateral hands. There was no untoward events overnight. Objective - Vital Signs/Intake and Output Vital Signs (last 24 hours): Temp Pulse Resp BP Pulse Ox 97.6 F 89 19 108/69 95 06/10/17 05:54 06/10/17 05:54 06/10/17 05:54 06/10/17 05:54 06/03/17 16:57 - Medications Medications: Current Medications Carbidopa/Levodopa (Sinemet) 1 tab PO BID@0800,1200 [facility] Last Admin: 06/10/17 08:20 Dose: 1 tab Divalproex Sodium (Depakote Dr(*Bid*)) 750 mg PO BID [facility] Last Admin: 06/10/17 09:24 Dose: 750 mg Nicotine (Nicoderm Cq) 1 patch TD DAILY [facility] Last Admin: 06/10/17 08:26 Dose: 1 patch Quetiapine Fumarate (Seroquel) 200 mg PO [facility] Last Admin: 06/09/17 21:06 Dose: 200 mg Temazepam (Restoril) 15 mg PO [facility] Last Admin: 06/09/17 21:06 Dose: 15 mg - Labs Labs: 06/04/17 06:34 06/04/17 06:34 - Constitutional Appears: No Acute Distress - Head Exam Head Exam: NORMAL INSPECTION - Neurological Exam Neurological Exam: Alert, Awake, Oriented x3 Neuro motor strength exam: Left Upper Extremity: 5, Right Upper Extremity: 5, Left Lower Extremity: 5, Right Lower Extremity: 5 Additional comments: He is able to answer and follow simple commands. Assessment and Plan (1) Tremor of both hands Assessment & Plan: case discussed with Dr. Borges, continue all current medical, psychiatry treatments. If patient will be discharge to follow up with Dr. Andre in the office in 2 weeks. The office address at [address] [place] [address] suite [facility]. [facility], [id number]. Status: Acute
--- NOTE | 2017-06-10 09:49 | PCM.PYCHDC ---
Mental Status Examination - Mental Status Examination Orientation: Person, Place, Situation, Time Memory: Intact Mood: Neutral Affect: Broad Speech: Appropriate Attention: WNL Concentration: WNL Association: WNL Fund of Knowledge: WNL Formal Thought Process: No Impairment Description of patient's judgement and insight: Fair I/J Psychotic Thoughts and Behaviors: No AH/VH/paranoia Suicidal Ideation: No Current Homicidal Ideation?: No Discharge Summary - Discharge Note Reason for Hospitalization: HPI: 51 yo male w/ h/o schizoaffective disorder, HLD, presents with worsening depression and suicidal ideation to hang himself. Patient reports that he feels upset because he feels like his hands shake uncontrollable and they have limited his ability to do things, such as care for himself and shave. Patient reports that he has been compliant with medications and that his primary psychiatrist has been modifying them because he feels "over medicated." He reports intermittent feels of depression. +Sleep/appetite disturbances. + Constricted affect. +Anhedonia. He denies current active suicidal ideation or intent and was able to contract for safety on the unit. Denies AH/VH/paranoia/ delusions. PPHx: History of psychiatric admission at [facility]. Current treatment w / Dr. Chase. Patient is currently being tapered off of Invega and increased on Seroquel (now at 200 mg PO HS). He was also prescribed Depakote 500 mg PO PO BID, Ativan 1 mg PO HS and Remeron 30 mg PO HS. PMHx: HLD SHx: Smokes 1ppd, denies drugs/etoh use. Lives w/ romantic partner. Unemployed. h/o Alcohol Use Disorder in remission. Laboratory Data: VPA 82.5 on 06/08/17 Consultations:: List each consultation separately and include: 1. Reason for request. 2. Findings. 3. Follow-up Consultations: Medicine consult, Neurology consult Summary of Hospital Course include:: 1. Description of specific treatment plan utilized for patients during their course of treatmen. 2. Summarize the time- course for resolution of acute symptoms and/or regressed behaviors. 3. Describe issues identified and worked on during hospitalization. 4. Describe medication utilized. 5. Describe medical problems identified and treated. 6. Reassessment of suicide risk Summary of Hospital Course: Patient was admitted to the psychiatry unit. Individual and group therapy were provided. Patient was stabilized on Depakote 750 mg PO BID, Seroquel 200 mg PO HS and Temazepam 15 mg PO HS for insomnia. He no longer reports suicidal ideation and reports improvement in his depression. No acute psychotic symptoms. Psychoeducation provided re: the importance of compliance with medications. Patient was consulted by Neurology who recommended a trial of Sinemet. - Diagnosis (1) Schizoaffective disorder Current Visit: No Status: Chronic - Final Diagnosis (DSM 5) Condition upon Discharge: STABLE DSM 5: Schizoaffective Disorder Disposition: HOME/ ROUTINE Follow-up Treatment Plan: Schizoaffective Disorder; patient is psychiatrically stable for discharge. -Continue Depakote 750 mg PO BID; VPA 82.5 on 06/08/17 -Continue Seroquel 200 mg PO HS; will not restart Invega Sustenna (last given 05/13/17) -Continue Restoril 15 mg PO HS -Nicotine patch; patient declined a prescription for the patch upon discharge -Neurology consult -Medicine consult -Individual and group therapy -Case discussed w/ primary psychiatrist -Disposition planning- discharge to home w/ outpatient follow-up Prescriptions/Medication Reconciliation: Carbidopa/Levodopa 25/100 mg [Sinemet] 1 tab PO BID@0800,1200 #60 tab Divalproex [Depakote DR(*BID*)] 750 mg PO BID #180 tcp QUEtiapine [SEROquel] 200 mg PO HS #30 tab Temazepam [Restoril] 15 mg PO HS #30 cap - Smoking Cessation Smoking Cessation Medication prescribed: Yes - Antipsychotic Medications Pt discharged on 2 or more routine antipsychotic medications: No
== END 2017-06-10 13:26 | disposition home or self-care (01) | DRG 430 ==
LOC: H.ER 12:52 → H.ERHOLD 15:07 → H.STEP 17:16
PROVIDERS: ADMIT Psychiatry & Neurology Psychiatry; ATTEND Psychiatry & Neurology Psychiatry
PROC: GZHZZZZ Group Psychotherapy (ICD-10-PCS; principal; 2017-06-03)
PROC: GZ58ZZZ Individual Psychotherapy, Cognitive-Behavioral (ICD-10-PCS; 2017-06-03)
PROC: 3E0234Z Introduction of Serum, Toxoid and Vaccine into Muscle, Percutaneous Approach (ICD-10-PCS; 2017-06-06)
DX: F25.9 Schizoaffective disorder, unspecified (principal); R45.851 Suicidal ideations; E87.6 Hypokalemia; F31.9 Bipolar disorder, unspecified; F10.11 Alcohol abuse, in remission; E78.5 Hyperlipidemia, unspecified; E78.1 Pure hyperglyceridemia; F17.210 Nicotine dependence, cigarettes, uncomplicated; F41.9 Anxiety disorder, unspecified; G47.00 Insomnia, unspecified; I10 Essential (primary) hypertension; Z23 Encounter for immunization; Z86.11 Personal history of tuberculosis